=== PATIENT | female | born 1970 | race African-American/Black ===

== ENCOUNTER 2016-05-04 08:45 | Emergency (ER) | payer OTHER ==
[~2016-05-04] VITALS: Ht 170.2 cm; Wt 73.0 kg
[~2016-05-04 08:45] MED LIST: AMLODIPINE; HYDR25TA; METO50TA5 PO; NIFEDIPINE; OMEP20TA15 PO
[2016-05-04] MEDS ORDERED: GUAIFENESIN-DM 200MG-20MG/10ML UDC PO ONE (11:00)
[2016-05-04] MEDS ORDERED: IBUPROFEN 400MG TABLET PO ONE (11:00)
[2016-05-04 11:24] VITALS: BP 147/102
[2016-05-04 13:46] LABS: CLARITY URINE CLOUDY (CLEAR); COLOR URINE DARK YELLOW (YELLOW); GLUCOSE URINE NEGATIVE (NEGATIVE); KETONES URINE 1+ (NEGATIVE); LEUKOCYTE ESTERASE URINE TRACE (NEGATIVE); NITRITE URINE NEGATIVE (NEGATIVE); OCCULT BLOOD URINE NEGATIVE (NEGATIVE); PH URINE 8.5 (4.5-8.0); PROTEIN URINE NEGATIVE (NEGATIVE); SPECIFIC GRAVITY URINE 1.021 (1.005-1.030)
[2016-05-04 14:14] LABS: BACTERIA URINE TRACE; RBC URINE NONE SEEN /hpf (0-2); SQUAMOUS EPITHELIAL CELL URINE FEW /lpf (RARE/1+); WBC URINE 0-2 /hpf (0-2)
== END 2016-05-04 14:52 | disposition home or self-care (01) ==
LOC: ER 09:11
DX: S39.012A Strain of muscle, fascia and tendon of lower back, initial encounter (principal); M62.838 Other muscle spasm; R05 Cough; R06.02 Shortness of breath; I10 Essential (primary) hypertension; Z79.899 Other long term (current) drug therapy; Z98.890 Other specified postprocedural states; X58.XXXA Exposure to other specified factors, initial encounter; Y93.89 Activity, other specified; Y92.89 Other specified places as the place of occurrence of the external cause; Y99.8 Other external cause status
CPT/HCPCS: 71010; 81001; 99285

== ENCOUNTER 2016-06-13 02:56 | Inpatient (IN) | payer OTHER ==
[~2016-06-13] VITALS: Ht 170.2 cm; Wt 78.5 kg
[~2016-06-13 02:56] MED LIST changes: -AMLODIPINE; -NIFEDIPINE
[2016-06-13] MEDS ORDERED: MORPHINE SULFATE 4 MG/ML CPJ (NOT FOR IM USE) IV STA (03:31)
[2016-06-13] MEDS ORDERED: SODIUM CHLORIDE 0.9% 1,000 ML IV ONE (03:31)
[2016-06-13] MEDS ORDERED: ONDANSETRON HCL 4MG/2ML VIAL IV STA (03:31)
[2016-06-13] MEDS ORDERED: CLONIDINE 0.2MG TABLET PO ONE (03:45)
[2016-06-13 04:05] LABS: BASOPHILS % 0.4 % (0.0-2.0); EOSINOPHILS % 0.6 % (0.0-5.0); HEMATOCRIT. 33.3 % (36.0-48.0); HEMOGLOBIN. 10.9 g/dL (12.0-16.0); LYMPHOCYTES % 37.1 % (20.0-50.0); MEAN CORPUSCULAR HGB CONC 32.6 g/dL (31.0-37.0); MEAN PLATELET VOLUME 8.7 fl (7.4-10.4); MONOCYTES % 9.1 % (2.0-8.0); NEUTROPHILS % 52.8 % (40.0-76.0); PLATELET 114 x1000/uL (130-400); RED BLOOD CELL COUNT 3.51 mill/uL (4.2-5.4); RED CELL DISTRIBUTION WIDTH 23.8 % (11.6-14.6); WHITE BLOOD COUNT 5.7 x1000/uL (4.5-11.0)
[2016-06-13 04:08] LABS: DIFFERENTIAL COMMENT 1
[2016-06-13 04:10] LABS: D-DIMER 0.44 mg/L FEU (<0.50); INR 1.2; PARTIAL THROMBOPLASTIN TIME 30.8 sec (24.0-34.0); PROTHROMBIN TIME 12.6 sec
[2016-06-13 04:16] LABS: ALANINE AMINOTRANSFERASE 71 IU/L (13-61); ALBUMIN 3.5 g/dL (3.4-5.0); ANION GAP 27; CALCIUM 8.3 mg/dL (8.5-10.1); CARBON DIOXIDE 15 mEq/L (21-32); CHLORIDE 103 mEq/L (98-107); INDEX HEMOLYSI 1 (1-3); INDEX ICTERIC 1 (1-4); INDEX LIPEMIC 1 (1-3); NT PRO B-TYPE NATRIURETIC PEP 99 pg/mL (5-125); TROPONIN I 0.05 ng/mL (0.00-0.04); UREA NITROGEN BLOOD 7 mg/dL (7-21); eGFR > 60 mL/min (>60)
[2016-06-13 04:24] LABS: HCG SCREEN NEGATIVE
[2016-06-13 04:37] LABS: ETHANOL BLOOD 403 mg/dL
[2016-06-13] MEDS ORDERED: SODIUM CHLORIDE 0.9% 10ML VIAL ONE (06:00)
[2016-06-13] MEDS ORDERED: IOHEXOL-350 100 ML BOTTLE ONE (06:00)
[2016-06-13] MEDS ORDERED: DEXTROSE 50% WATER 50ML SYRINGE IV ONE (06:45)
[2016-06-13] MEDS ORDERED: ASPIRIN 325MG TABLET PO ONE (07:15)
[2016-06-13 08:00] LABS: *AMPHETAMINES SCREEN URINE NEGATIVE (NEGATIVE); *BARBITURATES SCREEN URINE NEGATIVE (NEGATIVE); *BENZODIAZEPINES SCREEN URINE NEGATIVE (NEGATIVE); *COCAINE SCREEN URINE NEGATIVE (NEGATIVE); ECSTASY MDMA SCREEN URINE NEGATIVE (NEGATIVE); METHADONE URINE SCREEN NEGATIVE (NEGATIVE); PHENCYCLIDINE URINE SCREEN NEGATIVE (NEGATIVE)
[2016-06-13 08:04] LABS: OPIATES URINE SCREEN PRESUMTIVE POSITIVE (NEGATIVE)
[2016-06-13 08:05] LABS: CANNABINOID URINE SCREEN PRESUMTIVE POSITIVE (NEGATIVE)
[2016-06-13 08:15] VITALS: BP 139/97
[2016-06-13 11:44] VITALS: BP 129/97
[2016-06-13 12:00] VITALS: BP 138/90
[2016-06-13] MEDS ORDERED: ACETAMINOPHEN 325MG TABLET PO PRN (12:00)
[2016-06-13] MEDS ORDERED: IPRATROPIUM/ALBUTEROL 0.5-3(2.5)MG/3ML NEB INH PRN (12:00)
[2016-06-13] MEDS ORDERED: MAGNESIUM/ALUMINUM HYDROXIDE/SIMETHICONE 30ML UDC PO PRN (12:00)
[2016-06-13] MEDS ORDERED: GUAIFENESIN 200MG/10ML SUGAR FREE UDC PO PRN (12:00)
[2016-06-13] MEDS ORDERED: CLONIDINE 0.1MG TABLET PO PRN (12:00)
[2016-06-13] MEDS: HYDROCODONE/ACETAMINOPHEN 5/325MG TABLET PO PRN ×2 (12:37→17:17)
[2016-06-13] MEDS: DEXTROSE 5% WATER 1,000 ML IV SCH (13:14)
[2016-06-13] MEDS ORDERED: POTASSIUM CHLORIDE 20MEQ TABLET SR PO NR (14:05)
[2016-06-13] MEDS: AMLODIPINE 2.5MG TABLET PO SCH ×2 (14:25→21:17)
[2016-06-13 15:14] LABS: TROPONIN I 0.04 ng/mL (0.00-0.04)
[2016-06-13 16:00] VITALS: BP 161/115
[2016-06-13] MEDS: PANTOPRAZOLE SODIUM 40 MG/VIAL IV SCH (18:11)
[2016-06-13] MEDS ORDERED: DEXTROSE 50% WATER 50ML SYRINGE IV PRN (19:30)
[2016-06-13] MEDS: ONDANSETRON HCL 4MG/2ML VIAL IV PRN (19:48)
[2016-06-13 20:00] VITALS: BP 153/95
[2016-06-13] MEDS: BLOOD SUGAR DIAGNOSTIC STRIP TEST SCH (21:18)
[2016-06-13] MEDS: ALPRAZOLAM 0.5 MG TABLET PO PRN (22:47)
[2016-06-14] VITALS: BP 141/96
[2016-06-14] MEDS: DEXTROSE 5% WATER 1,000 ML IV SCH ×2 (01:48→17:51)
[2016-06-14 04:00] VITALS: BP 142/94
[2016-06-14 06:20] LABS: BASOPHILS % 0.5 % (0.0-2.0); HEMATOCRIT. 28.9 % (36.0-48.0); HEMOGLOBIN. 9.7 g/dL (12.0-16.0); LYMPHOCYTES % 21.8 % (20.0-50.0); MEAN CORPUSCULAR HEMOGLOBIN 31.4 pg (28.0-32.0); MEAN CORPUSCULAR HGB CONC 33.5 g/dL (31.0-37.0); MEAN CORPUSCULAR VOLUME 93.8 fL (81.0-99.0); MEAN PLATELET VOLUME 8.5 fl (7.4-10.4); MONOCYTES % 10.6 % (2.0-8.0); NEUTROPHILS % 66.1 % (40.0-76.0); PLATELET 54 x1000/uL (130-400); RED BLOOD CELL COUNT 3.08 mill/uL (4.2-5.4); RED CELL DISTRIBUTION WIDTH 23.3 % (11.6-14.6); WHITE BLOOD COUNT 3.2 x1000/uL (4.5-11.0)
[2016-06-14 07:18] LABS: ADD RBC MORPHOLOGY YES; DIFFERENTIAL COMMENT 1
[2016-06-14 07:28] LABS: ALANINE AMINOTRANSFERASE 57 IU/L (13-61); ALBUMIN 3.4 g/dL (3.4-5.0); ANION GAP 17; CALCIUM 8.4 mg/dL (8.5-10.1); CARBON DIOXIDE 27 mEq/L (21-32); CHLORIDE 97 mEq/L (98-107); CREATINE KINASE 134 IU/L (26-192); CREATINE KINASE MB FRACTION 2.9 ng/mL (0.5-3.6); HDL CHOLESTEROL 93 mg/dL (40-59); INDEX HEMOLYSI 1 (1-3); INDEX ICTERIC 1 (1-4); INDEX LIPEMIC 1 (1-3); LDL CHOLESTEROL 95 mg/dL (5-100); TRIGLYCERIDE 136 mg/dL (0-150); eGFR > 60 mL/min (>60)
[2016-06-14 07:40] LABS: UREA NITROGEN BLOOD 3 mg/dL (7-21)
[2016-06-14] MEDS: BLOOD SUGAR DIAGNOSTIC STRIP TEST SCH ×4 (07:41→21:15)
[2016-06-14 07:46] LABS: MAGNESIUM 0.7 mg/dL (1.8-2.4)
[2016-06-14 08:00] VITALS: BP 155/116
[2016-06-14] MEDS: HYDROCODONE/ACETAMINOPHEN 5/325MG TABLET PO PRN ×3 (08:19→23:37)
[2016-06-14] MEDS: ONDANSETRON HCL 4MG/2ML VIAL IV PRN (08:19)
[2016-06-14] MEDS: PANTOPRAZOLE SODIUM 40 MG/VIAL IV SCH (08:19)
[2016-06-14] MEDS: ASPIRIN 81MG EC TABLET PO SCH (08:20)
[2016-06-14] MEDS: AMLODIPINE 2.5MG TABLET PO SCH ×2 (08:20→21:13)
[2016-06-14] MEDS: ALPRAZOLAM 0.5 MG TABLET PO PRN (08:20)
[2016-06-14] MEDS ORDERED: MAGNESIUM 4 G PREMIX 100 ML IV NR (10:00)
[2016-06-14 12:00] VITALS: BP 143/111
[2016-06-14 16:00] VITALS: BP 138/113
[2016-06-14] MEDS: LOSARTAN POTASSIUM 25 MG TABLET PO SCH (17:50)
[2016-06-14 20:00] VITALS: BP 146/98
[2016-06-14 20:42] LABS: PLATELET ESTIMATE DECREASED
[2016-06-14 20:43] LABS: ANISOCYTOSIS 2+
[2016-06-15] VITALS (8 sets, daily range): BP systolic 128–159; BP diastolic 92–113
[2016-06-15] MEDS: DEXTROSE 5% WATER 1,000 ML IV SCH (04:08)
[2016-06-15] MEDS: DIPHENHYDRAMINE 50MG/ML VIAL IV PRN ×2 (04:12→08:38)
[2016-06-15] MEDS: BLOOD SUGAR DIAGNOSTIC STRIP TEST SCH ×3 (07:40→18:15)
[2016-06-15 07:41] LABS: ALANINE AMINOTRANSFERASE 54 IU/L (13-61); ANION GAP 13; CALCIUM 9.3 mg/dL (8.5-10.1); CARBON DIOXIDE 30 mEq/L (21-32); CHLORIDE 95 mEq/L (98-107); INDEX HEMOLYSI 1 (1-3); INDEX ICTERIC 1 (1-4); INDEX LIPEMIC 1 (1-3); MAGNESIUM 1.9 mg/dL (1.8-2.4); eGFR > 60 mL/min (>60)
[2016-06-15 07:44] LABS: UREA NITROGEN BLOOD 3 mg/dL (7-21)
[2016-06-15] MEDS: PANTOPRAZOLE SODIUM 40 MG/VIAL IV SCH (08:35)
[2016-06-15] MEDS: AMLODIPINE 2.5MG TABLET PO SCH (08:38)
[2016-06-15] MEDS: ASPIRIN 81MG EC TABLET PO SCH (08:38)
[2016-06-15] MEDS: LOSARTAN POTASSIUM 25 MG TABLET PO SCH ×2 (08:38→18:16)
[2016-06-15] MEDS ORDERED: LORAZEPAM 2MG/ML CPJ ONE (09:08)
[2016-06-15] MEDS ORDERED: LORAZEPAM 2MG/ML CPJ IV SCH (09:15)
[2016-06-15] MEDS ORDERED: LORAZEPAM 2MG/ML CPJ IV PRN ×3 (09:15→09:30)
[2016-06-15] MEDS ORDERED: FOLIC ACID 1 MG, THIAMINE HCL 100 MG, MVI, ADULT NO.1 10 ML in DEXTROSE 5% WATER 1,000 ML IV SCH ×4 (09:30)
[2016-06-15 09:54] LABS: BG BASE EXCESS 1.5 mmol/L (-2.0-2.0); BG CARBOXYHEMOGLOBIN 0.5 % (0.5-1.5); BG DEOXYHEMOGLOBIN 2.9 % (0.0-5.0); BG FRACTION INSPIRED OXYGEN 28; BG HCO3 ACT 24.8 mmol/L (22.0-26.0); BG METHEMOGLOBIN 0.2 % (0.0-1.5); BG OXYGEN SATURATION 97.1 % (92.0-98.5); BG OXYHEMOGLOBIN 96.4 % (94.0-97.0); BG PCO2 34.3 mmHg (35.0-45.0); BG PH 7.477 (7.350-7.450); BG PO2 94.7 mmHg (75.0-100.0); BG SAMPLE SITE LEFT BRACHIAL; BG TOTAL HEMOGLOBIN 10.8 g/dL (12.0-18.0); BG VENT MODE NASAL CANNULA
[2016-06-15] MEDS ORDERED: BUDESONIDE 0.5MG/2ML NEB HHN SCH (10:00)
[2016-06-15] MEDS ORDERED: LEVETIRACETAM 1,000 MG in SODIUM CHLORIDE 0.9% 100 ML IV SCH (10:00)
[2016-06-15] MEDS ORDERED: CEFEPIME 1,000 MG in DEXTROSE 5% WATER 50 ML IV SCH (10:00)
[2016-06-15 10:08] LABS: BASOPHILS % 0.2 % (0.0-2.0); HEMATOCRIT. 31.2 % (36.0-48.0); HEMOGLOBIN. 10.4 g/dL (12.0-16.0); LYMPHOCYTES % 19.4 % (20.0-50.0); MEAN CORPUSCULAR HEMOGLOBIN 31.6 pg (28.0-32.0); MEAN CORPUSCULAR HGB CONC 33.3 g/dL (31.0-37.0); MEAN CORPUSCULAR VOLUME 94.7 fL (81.0-99.0); MEAN PLATELET VOLUME 8.5 fl (7.4-10.4); MONOCYTES % 9.9 % (2.0-8.0); NEUTROPHILS % 69.5 % (40.0-76.0); PLATELET 53 x1000/uL (130-400); WHITE BLOOD COUNT 4.4 x1000/uL (4.5-11.0)
[2016-06-15] MEDS ORDERED: METOPROLOL TARTRATE 25MG TABLET PO SCH (10:15)
[2016-06-15 10:55] LABS: DIFFERENTIAL COMMENT 1
[2016-06-15 10:56] LABS: ADD RBC MORPHOLOGY NO
[2016-06-15] MEDS ORDERED: FOLIC ACID 1 MG, THIAMINE HCL 100 MG, MVI, ADULT NO.1 10 ML in DEXT 5%/0.45% NACL 1000M... IV SCH ×4 (11:00)
[2016-06-15 11:11] LABS: ALANINE AMINOTRANSFERASE 50 IU/L (13-61); ALBUMIN 3.6 g/dL (3.4-5.0); ANION GAP 15; CARBON DIOXIDE 26 mEq/L (21-32); CHLORIDE 97 mEq/L (98-107); CREATINE KINASE 101 IU/L (26-192); INDEX HEMOLYSI 1 (1-3); INDEX ICTERIC 1 (1-4); INDEX LIPEMIC 1 (1-3); MAGNESIUM 1.5 mg/dL (1.8-2.4); PHOSPHORUS 2.5 mg/dL (2.5-4.9); eGFR > 60 mL/min (>60)
[2016-06-15 11:18] LABS: UREA NITROGEN BLOOD 3 mg/dL (7-21)
[2016-06-15] MEDS: IPRATROPIUM/ALBUTEROL 0.5-3(2.5)MG/3ML NEB HHN SCH ×2 (12:23→16:12)
[2016-06-15] MEDS ORDERED: POTASSIUM CHLORIDE 20MEQ TABLET SR PO NR (13:30)
[2016-06-15] MEDS ORDERED: MAGNESIUM 2 G PREMIX 50 ML IV NR (14:30)
[2016-06-15] MEDS ORDERED: HYDRALAZINE 20MG/ML VIAL IV PRN (15:00)
[2016-06-15] MEDS ORDERED: AMLODIPINE 2.5MG TABLET PO SCH (15:00)
[2016-06-15] MEDS: HYDROCODONE/ACETAMINOPHEN 5/325MG TABLET PO PRN (15:49)
[2016-06-15] MEDS ORDERED: DEXT 5%/0.45% NACL KCL 20MEQ/L 1,000 ML IV SCH (19:00)
[2016-06-15] MEDS ORDERED: LEVETIRACETAM 750 MG in SODIUM CHLORIDE 0.9% 100 ML IV SCH (22:00)
[2016-06-15] MEDS ORDERED: LEVETIRACETAM 500 MG in SODIUM CHLORIDE 0.9% 100 ML IV SCH (22:00)
== END 2016-06-15 21:36 | disposition left against medical advice (07) | DRG 100 ==
LOC: ER 02:57 → 7WST 06:21 → 5EST 06-15 09:20
PROVIDERS: ADMIT Hospitalist; ATTEND Hospitalist
DX: G40.909 Epilepsy, unspecified, not intractable, without status epilepticus (principal); J96.00 Acute respiratory failure, unspecified whether with hypoxia or hypercapnia; K86.1 Other chronic pancreatitis; F10.129 Alcohol abuse with intoxication, unspecified; D64.9 Anemia, unspecified; D69.6 Thrombocytopenia, unspecified; E16.2 Hypoglycemia, unspecified; E83.42 Hypomagnesemia; F12.90 Cannabis use, unspecified, uncomplicated; F41.9 Anxiety disorder, unspecified; J44.9 Chronic obstructive pulmonary disease, unspecified; Y90.8 Blood alcohol level of 240 mg/100 ml or more; I10 Essential (primary) hypertension; K21.9 Gastro-esophageal reflux disease without esophagitis; K29.70 Gastritis, unspecified, without bleeding; K70.30 Alcoholic cirrhosis of liver without ascites; R73.9 Hyperglycemia, unspecified; F19.10 Other psychoactive substance abuse, uncomplicated; R74.0 Nonspecific elevation of levels of transaminase and lactic acid dehydrogenase [LDH]; Z98.891 History of uterine scar from previous surgery; Z82.49 Family history of ischemic heart disease and other diseases of the circulatory system; Z53.21 Procedure and treatment not carried out due to patient leaving prior to being seen by health care provider
CPT/HCPCS: 36415; 36600; 70450; 70551; 71010; 71275; 73552; 80053; 80061; 80305; 82375; 82550; 82553; 82805; 82962; 83735; 83880; 84100; 84484; 84703; 85025; 85379; 85610; 85730; 93005; 93306; 93970; 94640; 96361; 96374; 96375; 99285; A4216; C9113; G0482; J0692; J1200; J1953; J2060; J2270; J2405; J3411; J3475; J3490; J7030; J7050; J7060; J7070; J7620; J7626; Q9967

== ENCOUNTER 2016-06-25 16:29 | Emergency (ER) | payer OTHER ==
[~2016-06-25] VITALS: Ht 170.2 cm; Wt 78.0 kg
[2016-06-25 16:34] VITALS: BP 148/116
== END 2016-06-25 21:45 | disposition left against medical advice (07) ==
LOC: ER 21:33
DX: R51 Headache (principal); I10 Essential (primary) hypertension; J44.9 Chronic obstructive pulmonary disease, unspecified; Z98.890 Other specified postprocedural states

== ENCOUNTER 2016-07-23 17:06 | Emergency (ER) | payer OTHER ==
[~2016-07-23] VITALS: Ht 162.6 cm; Wt 70.0 kg
[2016-07-23 17:07] VITALS: BP 150/96
== END 2016-07-23 19:30 | disposition left against medical advice (07) ==
LOC: ER 17:46
DX: F41.9 Anxiety disorder, unspecified (principal); Z53.21 Procedure and treatment not carried out due to patient leaving prior to being seen by health care provider

== ENCOUNTER 2016-07-23 23:58 | Emergency (ER) | payer OTHER ==
[~2016-07-23] VITALS: Ht 170.2 cm; Wt 53.0 kg
[2016-07-24] VITALS: BP 150/85
== END 2016-07-24 01:50 | disposition left against medical advice (07) ==
LOC: ER 07-24 00:16
DX: F12.10 Cannabis abuse, uncomplicated (principal); Z53.21 Procedure and treatment not carried out due to patient leaving prior to being seen by health care provider

== ENCOUNTER 2016-09-26 03:21 | Emergency (ER) | payer OTHER ==
[~2016-09-26] VITALS: Ht 170.2 cm; Wt 69.0 kg
[2016-09-26 03:58] VITALS: BP 106/76
== END 2016-09-26 06:26 | disposition left against medical advice (07) ==
LOC: ER 03:30
DX: R11.2 Nausea with vomiting, unspecified (principal); Z53.21 Procedure and treatment not carried out due to patient leaving prior to being seen by health care provider

== ENCOUNTER 2016-10-22 22:30 | Inpatient (IN) | payer MEDICAID, OTHER ==
[~2016-10-22] VITALS: Ht 170.2 cm; Wt 68.0 kg
[2016-10-22] MEDS ORDERED: ONDANSETRON HCL 4MG/2ML VIAL IV STA (23:09)
[2016-10-22] MEDS ORDERED: SODIUM CHLORIDE 0.9% 1,000 ML IV ONE (23:09)
[2016-10-22 23:51] LABS: BASOPHILS % 0.7 % (0.0-2.0); CHLORIDE 98 mEq/L (98-107); EOSINOPHILS % 0.4 % (0.0-5.0); HEMATOCRIT. 27.8 % (36.0-48.0); HEMOGLOBIN. 9.4 g/dL (12.0-16.0); LYMPHOCYTES % 18.3 % (20.0-50.0); MEAN CORPUSCULAR HEMOGLOBIN 35.7 pg (28.0-32.0); MEAN CORPUSCULAR VOLUME 105.9 fL (81.0-99.0); MEAN PLATELET VOLUME 8.9 fl (7.4-10.4); MONOCYTES % 10.2 % (2.0-8.0); NEUTROPHILS % 70.4 % (40.0-76.0); RED BLOOD CELL COUNT 2.62 mill/uL (4.2-5.4); RED CELL DISTRIBUTION WIDTH 21.9 % (11.6-14.6)
[2016-10-22 23:59] LABS: CARBON DIOXIDE 28 mEq/L (21-32); ETHANOL BLOOD < 10 mg/dL
[2016-10-23 00:03] LABS: AMMONIA 48 uMol/L (<32)
[2016-10-23 01:44] LABS: *AMPHETAMINES SCREEN URINE NEGATIVE (NEGATIVE); *BARBITURATES SCREEN URINE NEGATIVE (NEGATIVE); *BENZODIAZEPINES SCREEN URINE NEGATIVE (NEGATIVE); METHADONE URINE SCREEN NEGATIVE (NEGATIVE); OPIATES URINE SCREEN NEGATIVE (NEGATIVE); PHENCYCLIDINE URINE SCREEN NEGATIVE (NEGATIVE)
[2016-10-23 02:09] LABS: *COCAINE SCREEN URINE PRESUMTIVE POSITIVE (NEGATIVE); CANNABINOID URINE SCREEN PRESUMTIVE POSITIVE (NEGATIVE)
[2016-10-23] MEDS ORDERED: LEVETIRACETAM 500MG PREMIX 100 ML IV ONE (03:30)
[2016-10-23] MEDS ORDERED: MORPHINE SULFATE 4 MG/ML CPJ (NOT FOR IM USE) IV ONE (03:30)
[2016-10-23] MEDS ORDERED: SODIUM CHLORIDE 0.9% 1,000 ML IV SCH (03:43)
[2016-10-23] MEDS ORDERED: IBUPROFEN 600MG TABLET PO PRN (03:45)
[2016-10-23] MEDS ORDERED: ACETAMINOPHEN 325MG TABLET PO PRN (03:45)
[2016-10-23] MEDS ORDERED: LACTULOSE 20G/30ML UDC PO ONE (03:45)
[2016-10-23] MEDS ORDERED: POTASSIUM CHLORIDE 20MEQ TABLET SR PO ONE (05:00)
[2016-10-23 08:00] VITALS: BP 138/96
[2016-10-23] MEDS ORDERED: NA PHOS,M-B/NA PHOS,DI-BA ENEMA 118ML PR PRN (08:15)
[2016-10-23] MEDS ORDERED: MAGNESIUM/ALUMINUM HYDROXIDE/SIMETHICONE 30ML UDC PO PRN (08:15)
[2016-10-23] MEDS ORDERED: GUAIFENESIN 200MG/10ML SUGAR FREE UDC PO PRN (08:15)
[2016-10-23] MEDS ORDERED: ONDANSETRON HCL 4MG/2ML VIAL IV PRN (08:15)
[2016-10-23] MEDS ORDERED: DOCUSATE SODIUM 100MG CAPSULE PO PRN (08:15)
[2016-10-23] MEDS ORDERED: LORAZEPAM 2MG/ML CPJ IV PRN (08:15)
[2016-10-23] MEDS ORDERED: NITROGLYCERIN 0.4MG TABLET SL SL PRN (08:15)
[2016-10-23] MEDS ORDERED: IPRATROPIUM/ALBUTEROL 0.5-3(2.5)MG/3ML NEB INH PRN (08:15)
[2016-10-23] MEDS: PANTOPRAZOLE SODIUM 40 MG/VIAL IV SCH (08:58)
[2016-10-23] MEDS ORDERED: MVI, ADULT NO.1 10 ML, FOLIC ACID 1 MG, THIAMINE HCL 100 MG in SODIUM CHLORIDE 0.9% 1,0... IV ONE ×4 (10:00)
[2016-10-23] MEDS ORDERED: KCL 20MEQ/100ML PREMIX 100 ML IV SCH (10:00)
[2016-10-23 10:11] LABS: PLATELET ESTIMATE MARKEDLY DECREASED
[2016-10-23 10:12] LABS: PLATELET 29 x1000/uL (130-400)
[2016-10-23] MEDS: ACETAMINOPHEN 325MG TABLET PO PRN ×2 (10:12→16:18)
[2016-10-23 10:58] LABS: BASOPHILS % 0.4 % (0.0-2.0); EOSINOPHILS % 0.1 % (0.0-5.0); HEMATOCRIT. 29.8 % (36.0-48.0); HEMOGLOBIN. 9.9 g/dL (12.0-16.0); LYMPHOCYTES % 14.4 % (20.0-50.0); MEAN CORPUSCULAR HEMOGLOBIN 35.2 pg (28.0-32.0); MEAN CORPUSCULAR VOLUME 106.1 fL (81.0-99.0); MEAN PLATELET VOLUME 9.6 fl (7.4-10.4); MONOCYTES % 10.1 % (2.0-8.0); RED BLOOD CELL COUNT 2.81 mill/uL (4.2-5.4); RED CELL DISTRIBUTION WIDTH 21.7 % (11.6-14.6)
[2016-10-23 11:18] LABS: CARBON DIOXIDE 31 mEq/L (21-32); CHLORIDE 95 mEq/L (98-107)
[2016-10-23 12:00] VITALS: BP 100/142
[2016-10-23] MEDS ORDERED: POTASSIUM CHLORIDE 20MEQ/PACKET PO NR (12:15)
[2016-10-23 12:59] LABS: PLATELET 28 x1000/uL (130-400)
[2016-10-23] MEDS ORDERED: MAGNESIUM 4 G PREMIX 100 ML IV NR (13:00)
[2016-10-23] MEDS: SUCRALFATE 1 G/10 ML UDC PO SCH ×3 (13:21→21:25)
[2016-10-23] MEDS: CHLORDIAZEPOXIDE 5 MG CAPSULE PO SCH ×2 (13:21→21:25)
[2016-10-23] MEDS: CLONIDINE 0.1MG TABLET PO PRN ×2 (13:42→21:28)
[2016-10-23 16:00] VITALS: BP 122/97
[2016-10-23 20:00] VITALS: BP 135/98
[2016-10-24] VITALS: BP 128/95
[2016-10-24 04:00] VITALS: BP 137/97
[2016-10-24] MEDS: CLONIDINE 0.1MG TABLET PO PRN (05:01)
[2016-10-24] MEDS: CHLORDIAZEPOXIDE 5 MG CAPSULE PO SCH (06:18)
[2016-10-24] MEDS: SUCRALFATE 1 G/10 ML UDC PO SCH (06:18)
[2016-10-24] MEDS: PANTOPRAZOLE SODIUM 40 MG/VIAL IV SCH (09:02)
[2016-10-24 09:08] VITALS: BP 130/100
[2016-10-24 11:34] LABS: CARBON DIOXIDE 29 mEq/L (21-32); CHLORIDE 99 mEq/L (98-107)
[2016-10-24 11:36] VITALS: BP 130/100
[2016-10-24 12:22] VITALS: BP 137/96
== END 2016-10-24 12:00 | disposition home or self-care (01) | DRG 53 ==
LOC: ER 22:30 → 6WST 10-23 03:44 → ENRESERV 10-23 04:15 → 6WST 10-23 06:21
PROVIDERS: ADMIT Internal Medicine; ATTEND Internal Medicine
DX: G40.509 Epileptic seizures related to external causes, not intractable, without status epilepticus (principal); D61.818 Other pancytopenia; E44.0 Moderate protein-calorie malnutrition; K70.30 Alcoholic cirrhosis of liver without ascites; E87.1 Hypo-osmolality and hyponatremia; E83.52 Hypercalcemia; E83.42 Hypomagnesemia; F10.239 Alcohol dependence with withdrawal, unspecified; F14.10 Cocaine abuse, uncomplicated; E87.6 Hypokalemia; I10 Essential (primary) hypertension; Z68.23 Body mass index [BMI] 23.0-23.9, adult
CPT/HCPCS: 36415; 70450; 80053; 80305; 82140; 82962; 83036; 83735; 85025; 93970; 96361; 96374; 96375; 99285; C9113; G0482; J1953; J2270; J2405; J3411; J3475; J3480; J3490; J7030

== ENCOUNTER 2017-01-12 19:12 | Emergency (ER) | payer MEDICAID ==
[~2017-01-12] VITALS: Ht 172.7 cm; Wt 82.0 kg
[~2017-01-12 19:12] MED LIST changes: +METO-539 PO; -METO50TA5 PO
[2017-01-12 19:27] VITALS: BP 147/105
== END 2017-01-12 19:25 | disposition left against medical advice (07) ==
LOC: ER 19:12
DX: Z53.21 Procedure and treatment not carried out due to patient leaving prior to being seen by health care provider (principal)

== ENCOUNTER 2017-01-12 23:25 | Emergency (ER) | payer MEDICAID ==
[~2017-01-12] VITALS: Ht 165.1 cm; Wt 72.0 kg
[2017-01-13] MEDS ORDERED: ONDANSETRON HCL 4MG/2ML VIAL IV ONE (00:15)
[2017-01-13] MEDS ORDERED: SODIUM CHLORIDE 0.9% 1,000 ML IV ONE (00:15)
[2017-01-13] MEDS ORDERED: LORAZEPAM 2MG/ML CPJ IV ONE (00:15)
[2017-01-13 00:32] LABS: BASOPHILS % 2.1 % (0.0-2.0); EOSINOPHILS % 0.8 % (0.0-5.0); HEMATOCRIT. 30.1 % (36.0-48.0); HEMOGLOBIN. 9.6 g/dL (12.0-16.0); LYMPHOCYTES % 13.8 % (20.0-50.0); MEAN CORPUSCULAR HEMOGLOBIN 31.6 pg (28.0-32.0); MEAN CORPUSCULAR VOLUME 98.9 fL (81.0-99.0); MEAN PLATELET VOLUME 8.4 fl (7.4-10.4); MONOCYTES % 14.5 % (2.0-8.0); NEUTROPHILS % 68.8 % (40.0-76.0); PLATELET 63 x1000/uL (130-400); RED BLOOD CELL COUNT 3.04 mill/uL (4.2-5.4); RED CELL DISTRIBUTION WIDTH 23.5 % (11.6-14.6)
[2017-01-13 00:33] LABS: CHLORIDE 112 mEq/L (98-107)
[2017-01-13 00:42] LABS: CARBON DIOXIDE 20 mEq/L (21-32)
[2017-01-13 00:45] LABS: ETHANOL BLOOD 379 mg/dL
[2017-01-13] MEDS ORDERED: CLONIDINE 0.2MG TABLET PO ONE (01:15)
[2017-01-13 02:00] VITALS: BP 138/90
== END 2017-01-13 02:15 | disposition left against medical advice (07) ==
LOC: ER 23:25
DX: F10.129 Alcohol abuse with intoxication, unspecified (principal); K85.90 Acute pancreatitis without necrosis or infection, unspecified; I10 Essential (primary) hypertension; F12.10 Cannabis abuse, uncomplicated; K75.9 Inflammatory liver disease, unspecified; Z95.0 Presence of cardiac pacemaker
CPT/HCPCS: 36415; 80048; 85025; 93005; 96361; 96374; 96375; 99285; G0482; J2060; J2405; J7030; Z7610

== ENCOUNTER 2017-01-13 23:05 | Emergency (ER) | payer MEDICAID ==
[~2017-01-13] VITALS: Ht 167.6 cm; Wt 71.0 kg
[2017-01-13 23:38] VITALS: BP 138/94
== END 2017-01-14 | disposition left against medical advice (07) ==
LOC: ER 23:05
DX: M79.1 Myalgia (principal); Z53.21 Procedure and treatment not carried out due to patient leaving prior to being seen by health care provider

== ENCOUNTER 2017-01-15 16:14 | Emergency (ER) | payer MEDICAID ==
[~2017-01-15] VITALS: Ht 162.6 cm; Wt 74.0 kg
[2017-01-15 16:19] VITALS: BP 163/114
== END 2017-01-15 17:46 | disposition left against medical advice (07) ==
LOC: ER 16:17
DX: Z53.21 Procedure and treatment not carried out due to patient leaving prior to being seen by health care provider (principal)

== ENCOUNTER 2017-03-28 15:02 | Emergency (ER) | payer MEDICAID ==
[~2017-03-28] VITALS: Ht 167.6 cm; Wt 85.0 kg
[2017-03-28 15:10] VITALS: BP 140/91
== END 2017-03-28 15:50 | disposition left against medical advice (07) ==
LOC: ER 15:09
DX: Z53.21 Procedure and treatment not carried out due to patient leaving prior to being seen by health care provider (principal); I10 Essential (primary) hypertension

== ENCOUNTER 2017-03-29 00:49 | Emergency (ER) | payer MEDICAID ==
[~2017-03-29] VITALS: Ht 170.2 cm; Wt 82.0 kg
[2017-03-29 00:56] VITALS: BP 156/109
== END 2017-03-29 02:00 | disposition left against medical advice (07) ==
LOC: ER 00:49
DX: M79.1 Myalgia (principal); Z53.21 Procedure and treatment not carried out due to patient leaving prior to being seen by health care provider

== ENCOUNTER 2017-05-06 21:05 | Emergency (ER) | payer MEDICAID, OTHER ==
[~2017-05-06] VITALS: Ht 165.1 cm; Wt 90.0 kg
[~2017-05-06 21:05] MED LIST changes: -METO-539 PO
[2017-05-06 21:18] VITALS: BP 142/92
== END 2017-05-07 | disposition left against medical advice (07) ==
LOC: ER 21:24
DX: Z53.21 Procedure and treatment not carried out due to patient leaving prior to being seen by health care provider (principal)